=== PATIENT | male | born 1955 | race Caucasian/White ===

== ENCOUNTER 2016-09-21 08:30 | Emergency (ER) | payer OTHER ==
[~2016-09-21] VITALS: Ht 180.3 cm; Wt 119.0 kg
[2016-09-21 08:33] VITALS: BP 135/79; PULSE 74; RESP 17; TEMP 97.7; O2SAT 98
[2016-09-21] MEDS ORDERED: KETOROLAC TROMETHAMINE 60 MG/2 ML (IM) VIAL IM ONE (09:00)
--- NOTE | 2016-09-21 09:13 | PD ---
HPI Chief Complaint: Musculoskeletal Complaint Time Seen by Provider: 08:42 Travel History International Travel<30 days: No Contact w/Intl Traveler<30days: No Traveled to known affect area: No History of Present Illness HPI 60yo M with no PMH presents to the ED with c/o right foot pain for 2-3 weeks. Pain is localized where the archilles tendon is and is tender to palpation. States walking actually helps with pain but pain has been getting worst. Took acetaminophen yesterday. Denies any fever, trauma, fall, chest pain, sob, n/v, abdominal pain, weakness or numbness. PFSH Past Medical History Medical History: Denies Significant Hx Influenza Vaccination: No ?: Not Past Surgical History Surgical History: No Previous Surgery Social History Alcohol Use: Yes () Tobacco Use: No Substance Use: No Allergies-Medications (Allergen,Severity, Reaction): Coded Allergies: No Known Allergies (Unverified , 09/21/16) Reported Meds & Prescriptions Reported Meds & Active Scripts Active No Active Prescriptions or Reported Medications Review of Systems Except as stated in HPI: all other systems reviewed are Neg Physical Exam Narrative GENERAL: 60yo M not in distress. SKIN: Focused skin assessment warm/dry. HEAD: Atraumatic. Normocephalic. CARDIOVASCULAR: Regular rate and rhythm. No murmur appreciated. RESPIRATORY: No accessory muscle use. Clear to auscultation. Breath sounds equal bilaterally. GASTROINTESTINAL: Abdomen soft, non-tender, nondistended. MUSCULOSKELETAL: Right foot: No erythema or edema. Point tenderness in archilles tendon. DP 2+. Sensation intact. Muscle strength intact. NEUROLOGICAL: Awake and alert. No obvious cranial nerve deficits. Motor grossly within normal limits. Normal speech. PSYCHIATRIC: Appropriate mood and affect; insight and judgment normal. Data Data Last Documented VS Vital Signs Date Time Temp Pulse Resp B/P Pulse Ox O2 Delivery O2 Flow Rate FiO2 09/21/16 08:33 97.7 74 17 135/79 98 Orders Foot, Limited (2vws) (09/21/16 ) Ketorolac Inj (Toradol Inj) (09/21/16 09:00) MDM Medical Decision Making Medical Screen Exam Complete: Yes Emergency Medical Condition: Yes Interpretation(s) Last Impressions Foot X-Ray 09/21/16 0000 Signed Impressions: Service Date/Time: Wednesday, September 21, 2016 09:25 - CONCLUSION: No acute right foot abnormality is identified. 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 Renny Canas MD Differential Diagnosis Tendonitis vs. calcaneal spur vs. contusion vs. osteoarthritis Narrative Course 60yo M with right foot pain for 2-3 weeks. Xray right foot showed no acute right foot abnormality. Osteoarthritis at first MTP joint. Pt given toradol 30mg IM which did not help with pain. Will give percocet. Pt to follow up as outpatient. Return precautions given. Diagnosis Primary Impression: Right foot pain Patient Instructions: General Instructions Departure Forms: Tests/Procedures Additional Instructions: Please follow up with your PMD or podiatry in 3-7 days. Return to the ED if symptoms worsen. Med/Other Pt SpecificInfo: Prescription(s) given Scripts Ibuprofen 600 Mg Ktf310 Mg PO Q8H PRN (PAIN) #20 TAB Ref 0 Prov:Padmini Huynh DO 09/21/16 Disposition: 01 DISCHARGE HOME Condition: Stable Padmini Huynh DO September 21, 2016 09:13
--- NOTE | 2016-09-21 09:44 | RADHPO ---
EXAM DATE/TIME: 09/21/2016 09:25 [facility] COMPARISON: No previous studies available for comparison. INDICATIONS : Foot pain. MEDICAL HISTORY : None. SURGICAL HISTORY : None. ENCOUNTER: Initial ACUITY: 2 days PAIN SCORE: 5/10 LOCATION: Right achilles FINDINGS: 2 views of the right foot demonstrate no fracture or dislocation. The Lisfranc joint appears intact. Mineralization is within normal limits. There is mild osteoarthritis at the first metatarsophalangeal joint and in the hindfoot. Enthesophytes are present on the calcaneus. No soft tissue abnormality or radiopaque foreign body is identified. CONCLUSION: No acute right foot abnormality is identified. 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 Renny Canas MD on September 21, 2016 at 9:40 Board Certified Radiologist. This report was verified electronically.
[2016-09-21] MEDS ORDERED: IBUP-232 PO (10:23)
[2016-09-21] MEDS ORDERED: oxyCODONE/ACETAMINOPHEN 5 MG/325 MG TAB PO ONE (10:30)
== END 2016-09-21 10:56 | disposition home or self-care (01) ==
LOC: PHEFT 08:30
DX: M79.671 Pain in right foot (principal)
CPT/HCPCS: 73620; 96372; 99284; J1885